=== PATIENT | female | born 1985 | race Caucasian/White ===

== ENCOUNTER 2017-08-02 05:02 | Inpatient (IN) | payer BC ==
[~2017-08-02] VITALS: Ht 152.4 cm; Wt 86.2 kg
[~2017-08-02 05:02] MED LIST: ACET-3017 PO; HYDR2TAB4 PO; IBUP800T37 PO; METH0.2T6 PO; PNV1TABL70 PO
[2017-08-02] MEDS ORDERED: FAMOTIDINE(*) 20MG/50ML PREMIX 50 ML IVPB PRN (05:06)
[2017-08-02] MEDS ORDERED: OXYTOCIN 30 UNIT/D5LR 500 ML 500 ML IV PRN ×2 (05:06)
[2017-08-02] MEDS ORDERED: LIDOCAINE/SOD BICARB 8.4% SYR SC PRN (05:10)
[2017-08-02] MEDS ORDERED: fentaNYL CITR 100 MCG/2 ML AMP IVP PRN (05:10)
[2017-08-02] MEDS ORDERED: METOCLOPRAMIDE 10 MG/2 ML SDV IVP PRN (05:10)
[2017-08-02] MEDS ORDERED: MISOPROSTOL 25 MCG CAP PV PRN (05:10)
[2017-08-02] MEDS ORDERED: LIDOCAINE 1% LOCAL 300 MG/30ML INJ PRN (05:10)
[2017-08-02] MEDS ORDERED: cefOXitin SOD 2 GM VIAL 2 GM in NS(*) 0.9% 100 ML BAG 100 ML IVPB PRN (05:10)
[2017-08-02] MEDS ORDERED: TERBUTALINE SULF 1 MG/ML VIAL SUBQ PRN (05:10)
[2017-08-02] MEDS: LR(*) 1000 ML BAG 1,000 ML IV PRN ×3 (05:52→12:22)
[2017-08-02 06:09] LABS: PLATELET COUNT, AUTOMATED 231 K/uL (150-450)
[2017-08-02 06:12] VITALS: BP 126/79; Ht 152.4 cm; Wt 86.2 kg
--- NOTE | 2017-08-02 07:28 | History & Physical ---
History of Present Illness Age of Patient: 31 : 3 Para or TPAL: 1011 EDC per LMP: Aug 06, 2017 Estimated Gestational Age: 39.3 Chief Complaint IOL History of Present Illness The patient is a 31 year old 3 para 1011 admitted at 39 3/7 weeks estimated gestational age with an estimated date of delivery 08/06/17 . Patient is admitted for induction of labor. No vaginal bleeding. Good movement and occasional contractions. She was evaluated for active labor. She had an uncomplicated course. Her record was reviewed. History Allergies: Coded Allergies: No Known Drug Allergies (Unverified , 05/11/13) Med Rec Home Meds Active Scripts Methylergonovine Mal 0.2 Mg Tab (METHERGINE 0.2 MG TAB) 0.2 Mg Tablet, 0.2 MG PO Q6H, #6 TAB Prov:REESE SAAB MD 09/02/16 Ibuprofen (IBUPROFEN) 800 Mg Tablet, 1 TAB PO Q8H, #30 TAB 0 Refills Take with food every 8 hours. Prov:REESE SAAB MD 09/02/16 Hydromorphone Hcl (HYDROMORPHONE HCL) 2 Mg Tablet, 2-4 MG PO Q4H for PAIN, #20 TAB 0 Refills Prov:REESE SAAB MD 09/02/16 Reported Medications Pnv Cmb#95/Ferrous Fumarate/Fa ( MULTIVITAMINS TABLET) 1 Each Tablet, 1 EACH PO 05/11/13 Exam General Exam Vital Signs Vital Signs Date Time Temp Pulse Resp B/P (MAP) Pulse Ox O2 Delivery O2 Flow Rate FiO2 08/02/17 06:12 98.8 110 16 126/79 (95) Room Air Cardiovascular: Regular Rate and Rhythm Respiratory: Clear to Auscultation Abdomen: Gravid - Non-Tender Extremities: No Edema Cervical Dialation: 4 (rn) Uterine Contractions(Q min): 3 Fetus Heart Tones: 130 Heart Tone Variabilty: Moderate FHT Category: I Medical Decision Making Data Points Result Diagram: 08/02/17 0553 Assessment and Plan Problems: (1) , normal subsequent Assessment & Plan: IOL AT TERM FAVORABLE CERVIX WILL MONITOR FOR CHANGE. LAST SMALLER THAN THIS WILL MONITOR FOR CHANGE IN CERVIX Copies to: REESE SAAB MD, JOHN MD Aug 02, 2017 07:27
--- NOTE | 2017-08-02 09:07 | Labor Progress Note ---
Labor Subjective Progress Notes Subjective FEELING CONTRACTIONS Vaginal Discharge/Fluid: Clear Fluid Labor Pain: Mild Labor Objective Vital Signs Vital Signs Date Time Temp Pulse Resp B/P (MAP) Pulse Ox O2 Delivery O2 Flow Rate FiO2 08/02/17 06:12 98.8 110 16 126/79 (95) Room Air Cervical Dialation: 5 Cervical Effacement (%): 90 Cervical Consistency: Soft Cervical Position: Anterior Station: -1 Presentation: Vertex Uterine Contractions(Q min): 3 Uterine Contraction Strength: Moderate Fetus Heart Tones: 150 Heart Tone Variabilty: Moderate FHT Accelerations: 15X15 FHT Category: I Other Result Diagram: 08/02/17 0553 Assessment and Plan Problems: (1) , normal subsequent Assessment & Plan: WITH EXAM FOREBAG ROM WITH AMNIOTIC MEMBRANE PALPATED WITH BULGING BAG, NOT RUPTURED WILL ALLOW TO LABOR REESE SAAB MD Aug 02, 2017 09:07
[2017-08-02] MEDS ORDERED: LIDO/EPI 2% MPF 1:200,000 20ML EPI PRN (09:30)
[2017-08-02] MEDS ORDERED: ePHEDrine 25 MG/5 ML DISP.SYR IVP PRN (09:30)
[2017-08-02] MEDS ORDERED: EPIDURAL KEYS XX PRN (09:30)
[2017-08-02] MEDS ORDERED: FENTANYL/ROPIVACAINE 100 ML BAG EPI PRN (09:30)
[2017-08-02] MEDS ORDERED: BUPIVACAINE 0.5% INJ 30ML VIAL EPI PRN (09:30)
[2017-08-02] MEDS ORDERED: LIDOCAINE/PF 2% 200MG/10ML AMP 200 MG/10 ML AMPUL EPI PRN (09:30)
[2017-08-02] MEDS ORDERED: BUPIVACAINE 0.25% MPF INJ EPI PRN (09:30)
[2017-08-02] MEDS ORDERED: fentaNYL CITR 100 MCG/2 ML AMP IT PRN (09:30)
--- NOTE | 2017-08-02 12:59 | Anesthesia OB Pre-Anes Eval ---
History of Present Illness Anesthesia Start Date: Aug 02, 2017 Anesthesia Start Time: 09:57 OB Anesthesia Diagnosis: induction - medical EDC: Aug 06, 2017 : 3 Para: 1 Vital Signs: Vital Signs 08/02/17 06:12 Temp 98.8 Pulse 110 Resp 16 B/P (MAP) 126/79 (95) O2 Delivery Room Air Pain Ratin Result Diagram: 08/02/17 0553 Height (Inches): 60.00 Weight (Pounds): 190 BMI Calculated: 37.10 Past Medical History Medical History: no pertinent history Previous Anesthesia: epidural Attended Childbirth Classes?: No Hx Anesthesia Reactions: No Hx Family Anesthesia Reaction: No Current Medications: pitocin Home Meds Active Scripts Methylergonovine Mal 0.2 Mg Tab (METHERGINE 0.2 MG TAB) 0.2 Mg Tablet, 0.2 MG PO Q6H, #6 TAB Prov:REESE SAAB MD 09/02/16 Ibuprofen (IBUPROFEN) 800 Mg Tablet, 1 TAB PO Q8H, #30 TAB 0 Refills Take with food every 8 hours. Prov:REESE SAAB MD 09/02/16 Hydromorphone Hcl (HYDROMORPHONE HCL) 2 Mg Tablet, 2-4 MG PO Q4H for PAIN, #20 TAB 0 Refills Prov:REESE SAAB MD 09/02/16 Reported Medications Pnv Cmb#95/Ferrous Fumarate/Fa ( MULTIVITAMINS TABLET) 1 Each Tablet, 1 EACH PO 05/11/13 Allergies: Coded Allergies: No Known Drug Allergies (Unverified , 05/11/13) Anesthesia OB ROS Neurological: No migraines/headaches, No seizures, No neuropathy, No other ENT: Denies Tooth caps, Denies Loose teeth, Denies Chipped teeth, Denies Dentures, Denies Bridges, Denies Retainers, Denies Veneers, Denies Implants, Denies Tongue ring, Denies Other Pulmonary: No asthma, No smoker (pks/day/yrs), No other Airway Class: lll Cardiovascular ROS: No edema, No arrhythmia, No other GI ROS: clear liquids Last Solids Date: Aug 01, 2017 Last Solids Time: 18:30 ROS: No Herpes, No STD(s), No Liver Disease, No Renal Disease, No Other Endocrine ROS: No diabetes, No gestational diabetes, No thyroid disorder, No other Musculoskeletal ROS: No low back pain, No low back injury, No scoliosis, No other ASA Classification: 2 Assessment and Plan Anesthesia Plan: JASEN BOWSER CRNA Aug 02, 2017 12:59
--- NOTE | 2017-08-02 13:03 | Procedure Note ---
Anesthetic Placement Note Anesthesia Plan: CSE Permit for Anesthesia Signed: Yes Anesthesia Technique: Patient Sitting Anesthesia Prep: Chlorhexidine Interspace: L 3-4 Local Anesthetic: 1% Lidocaine Amount Local - cc's: 5 Anesthesia Needle: 17g Touhy/Schliff Anesthesia Attempts: 2 Loss of Resistance: Normal Saline Depth of ABBIE (cm): 5.5 Epidural Needle Placement: No CSF, No Blood, No Parasthesia Intrathecal Needle: 27 Gauge Pencan Cerebral Spinal Fluid: Yes, Clear Catheter Insertion (cm): 10 (at skin) Catheter Type: Bain - Spring Wound Epidural Dressing: Tegaderm, Tape Anesthesia Tray: Lot Number ([id number]), Expiration Date (12/02), Reference Number ([id number]) Anesthesia Medications: Intrathecal Dose: mcg Fentanyl (10), mg Marcaine MPF (2.5) Epidural Test Dose: 1.5 Lido/Epi (1:200,000), Dose - mL (3), Time (1017), Negative Comment: Pt has pressure and a rim of cervix. Did not hok up epidual infusion. Will habd bolus as needed. JASEN NICOLE CRNA Aug 02, 2017 13:03
--- NOTE | 2017-08-02 13:04 | Anesthesia Progress Note ---
Progress/Maintenance Anesthesia Note Date: Aug 02, 2017 Anesthesia Note Time: 11:50 Pain Intensity: 2 Pump: Off Sensory Level: rectal pressure Motor Level: Bending Knees-Bilateral Dilatation: 10 Position: Right Drug Bolus: 0.25% Marcaine (5cc + 50 mcg fentanyl) JASEN NICOLE CRNA Aug 02, 2017 13:04
--- NOTE | 2017-08-02 13:05 | Anesthesia Progress Note ---
Progress/Maintenance Anesthesia Note Date: Aug 02, 2017 Anesthesia Note Time: 12:40 Pain Intensity: 1 Sensory Level: pressure. +2 station Motor Level: Bending Knees-Bilateral Dilatation: 10 Position: Left Drug Bolus: 0.25% Marcaine (5cc) JASEN NICOLE CRNA Aug 02, 2017 13:05
--- NOTE | 2017-08-02 13:15 | Labor Progress Note ---
Labor Subjective Progress Notes Subjective feeling pressure Labor Objective Vital Signs Vital Signs Date Time Temp Pulse Resp B/P (MAP) Pulse Ox O2 Delivery O2 Flow Rate FiO2 08/02/17 06:12 98.8 110 16 126/79 (95) Room Air Cervical Dialation: 10 Station: +1 Presentation: Vertex Uterine Contractions(Q min): 3 Uterine Contraction Strength: Strong Fetus Heart Tones: 130 Heart Tone Variabilty: Moderate FHT Accelerations: 15X15 FHT Decelerations: Variable FHT Category: II Other Result Diagram: 08/02/17 0553 Assessment and Plan Problems: (1) , normal subsequent Assessment & Plan: will see if able to tolerate laboring down REESE SAAB MD Aug 02, 2017 13:15
--- NOTE | 2017-08-02 13:47 | Anesthesia Progress Note ---
Progress/Maintenance Anesthesia Note Date: Aug 02, 2017 Anesthesia Note Time: 13:45 Pain Intensity: 3 Sensory Level: pressure Motor Level: Bending Knees-Bilateral Dilatation: 10 Position: Left Drug Bolus: 0.25% Marcaine (5cc + 40 mcg Fentanyl) JASEN NICOLE CRNA Aug 02, 2017 13:47
--- NOTE | 2017-08-02 15:08 | OB Delivery Note ---
Delivery Note Vaginal Delivery Type: Spont. Vaginal Delivery Delivery Date: Aug 02, 2017 Delivery Time: 14:30 Estimated Gestational Age(wks): 39.3 Delivery Anesthesia: Epidural, Local Sex: Female Weight (gms): 3544 Apgars: 1 Minute (7), 5 Minute (8) Repair Needed: Laceration, Vaginal, Perineal, 2nd Degree Estimated Blood Loss: 400 Delivery Complications: Nuchal Cord Notes: IOL, PITOCIN, AROM RECEIVED EPIDURAL, PROGRESSED TO COMPLETE. PUSHED EFFECTIVELY DELIVERED OVER MIDLINE LACERATION WHICH WAS REPAIRED WITH 3-0 VICRYL Material Requirements Worker in Attendence: No Copies to: REESE SAAB MD, JOHN MD Aug 02, 2017 15:07
[2017-08-02] MEDS ORDERED: GLYCERIN/WITCH HAZEL LEAF 1 PK TP PRN (15:10)
[2017-08-02] MEDS ORDERED: HYDROmorphone HCL 2 MG TAB PO PRN (15:10)
[2017-08-02] MEDS ORDERED: LANOLIN OINT 7 GM TUBE TP PRN (15:10)
[2017-08-02] MEDS ORDERED: BENZOCAINE 20% 60 ML BTL TP PRN (15:10)
[2017-08-02] MEDS ORDERED: ACETAMINOPHEN 325 MG TAB PO PRN (15:10)
[2017-08-02] MEDS ORDERED: MEASLES,MUMP,RUBELLA VAC 0.5ML SUBQ ONE (15:10)
[2017-08-02] MEDS ORDERED: INFLUENZA VIRUS VAC 0.5 ML SYR IM ONLY ONE (15:10)
[2017-08-02] MEDS ORDERED: DIPHTH/TETANUS/ACEL. PERTUSSIS IM ONLY ONE (15:10)
[2017-08-02] MEDS ORDERED: HYDROCORTISONE 2.5% CR 30GM TB PR PRN (15:10)
[2017-08-02] MEDS ORDERED: MAGNESIUM HYDROXIDE* 30ML UDCP PO PRN (15:10)
--- NOTE | 2017-08-02 15:19 | Anesthesia Progress Note ---
Assessment and Plan Anesthesia Plan: CSE Anesthesia Stop Day: Aug 02, 2017 Anesthesia Stop Time: 15:00 Epidural Catheter Removal: Yes, Removed by: (Sindy CHEW) JASEN NICOLE CRNA Aug 02, 2017 15:19
[2017-08-02] MEDS ORDERED: LIDOCAINE 1% LOCAL 300 MG/30ML 30 ML ONE (16:21)
[2017-08-02 17:45] VITALS: BP 116/64
[2017-08-02] MEDS: IBUPROFEN 800 MG TAB PO SCH (17:51)
[2017-08-02 20:02] VITALS: BP 119/68
[2017-08-02] MEDS: DOCUSATE CALCIUM 240 MG CAP PO SCH (21:16)
[2017-08-02] MEDS: MISOPROSTOL 200 MCG TAB PO SCH (21:17)
[2017-08-02 23:52] VITALS: BP 120/60
[2017-08-03] MEDS: IBUPROFEN 800 MG TAB PO SCH ×2 (01:00→09:50)
[2017-08-03] MEDS: MISOPROSTOL 200 MCG TAB PO SCH ×2 (03:07→09:55)
[2017-08-03 04:45] VITALS: BP 116/72
[2017-08-03] MEDS ORDERED: HYDR2TAB4 PO (08:58)
[2017-08-03] MEDS ORDERED: IBUP800T37 PO (08:58)
[2017-08-03] MEDS ORDERED: MULTIVITAMINS (PRENATAL) TAB PO SCH (09:00)
--- NOTE | 2017-08-03 09:01 | OB/GYN Discharge Summary ---
Discharge Summary Reason for Hosp/Final Diag: (1) , normal subsequent (2) care following vaginal delivery Hospital Course & Plan: Vag delivery on day 1, Pain controlled, Tolerating diet and activity. Baby . Normal lochia. Lates Vital Signs Vital Signs Date Time Temp Pulse Resp B/P (MAP) Pulse Ox O2 Delivery O2 Flow Rate FiO2 08/03/17 04:45 98.7 92 16 116/72 (87) 08/02/17 20:02 95 Room Air Weight (Pounds): 190 Result Diagram: 08/03/17 0630 Condition: Improved Discharge: Home, Self Retirement Meds Active Scripts Ibuprofen (IBUPROFEN) 800 Mg Tablet, 1 TAB PO Q8H, #30 TAB 0 Refills Take with food every 8 hours. Prov:REESE ABDI MD 08/03/17 Hydromorphone Hcl (HYDROMORPHONE HCL) 2 Mg Tablet, 2-4 MG PO Q4H for PAIN, #20 TAB 0 Refills Prov:REESE ABDI MD 08/03/17 Methylergonovine Mal 0.2 Mg Tab (METHERGINE 0.2 MG TAB) 0.2 Mg Tablet, 0.2 MG PO Q6H, #6 TAB Prov:REESE ABDI MD 09/02/16 Ibuprofen (IBUPROFEN) 800 Mg Tablet, 1 TAB PO Q8H, #30 TAB 0 Refills Take with food every 8 hours. Prov:REESE ABDI MD 09/02/16 Hydromorphone Hcl (HYDROMORPHONE HCL) 2 Mg Tablet, 2-4 MG PO Q4H for PAIN, #20 TAB 0 Refills Prov:REESE ABDI MD 09/02/16 Reported Medications Pnv Cmb#95/Ferrous Fumarate/Fa ( MULTIVITAMINS TABLET) 1 Each Tablet, 1 EACH PO 05/11/13 [phone], Dr. Abdi [phone] Follow up in: 6 wks PP or PO Discharge Diet: As Tolerates Discharge Activity: Pelvic Rest Copies to: REESE ABDI MD, JOHN MD Aug 03, 2017 09:00
--- NOTE | 2017-08-03 09:02 | OB/GYN Progress Note ---
OB Subjective Progress Notes Subjective Pain controlled, Tolerating diet and activity. Baby . Normal lochia. GI: POS Flatus, NEG Nausea, NEG Vomiting : Voiding Well Pain: Mild OB Objective Physical Exam Vital Signs Date Time Temp Pulse Resp B/P (MAP) Pulse Ox O2 Delivery O2 Flow Rate FiO2 08/03/17 04:45 98.7 92 16 116/72 (87) 08/02/17 20:02 95 Room Air Cardiovascular: Regular Rate and Rhythm Respiratory: Clear to Auscultation Abdomen: Fundus Firm Extremities: No Edema Result Diagram: 08/03/17 0630 Assessment and Plan Problems: (1) , normal subsequent (2) care following vaginal delivery Assessment & Plan: Vag delivery on day 1, Pain controlled, Tolerating diet and activity. Baby . Normal lochia. REESE SAAB MD Aug 03, 2017 09:01
[2017-08-03] MEDS: DOCUSATE CALCIUM 240 MG CAP PO SCH (09:50)
[2017-08-03 09:55] VITALS: BP 114/63
--- NOTE | 2017-08-03 11:53 | Anesthesia Post Eval Note ---
Anesthesia Post Eval Note Vital Signs 08/03/17 09:55 Temp 98.5 Pulse 101 Resp 20 B/P (MAP) 114/63 (80) Pulse Ox 96 O2 Delivery Room Air Pt able to participate in Eval: Yes Cardiovascular Status: Satisfactory Respiratory Status: Satisfactory Pain Managment: Satisfactory PO Nausea/Vomiting: Satisfactory Temperature Management: Satisfactory Mental Status: Satisfactory, Alert, Oriented X3 Post-Op Hydration Status: Satisfactory, Tolerating PO Well, Voiding w/o Difficulty Anesthesia Type: CSE JASEN NICOLE CRNA Aug 03, 2017 11:53
[2017-08-03 13:00] VITALS: BP 107/60
[2017-08-03] MEDS ORDERED: MISOPROSTOL 200 MCG TAB PO SCH (21:00)
== END 2017-08-03 16:00 | disposition home or self-care (01) | DRG 775 ==
LOC: OB 05:02
PROVIDERS: ADMIT Obstetrics & Gynecology; ATTEND Obstetrics & Gynecology
PROC: 10E0XZZ Delivery of Products of Conception, External Approach (ICD-10-PCS; principal; 2017-08-02)
PROC: 0KQM0ZZ Repair Perineum Muscle, Open Approach (ICD-10-PCS; 2017-08-02)
PROC: 10907ZC Drainage of Amniotic Fluid, Therapeutic from Products of Conception, Via Natural or Artificial Opening (ICD-10-PCS; 2017-08-02)
PROC: 3E033VJ Introduction of Other Hormone into Peripheral Vein, Percutaneous Approach (ICD-10-PCS; 2017-08-02)
DX: O69.81X0 Labor and delivery complicated by cord around neck, without compression, not applicable or unspecified (principal); O70.1 Second degree perineal laceration during delivery; Z3A.39 39 weeks gestation of pregnancy; Z37.0 Single live birth
CPT/HCPCS: 36415; 85025; 85027; 86850; 86900; 86901; J2001; J2590; J3010; J7120; S0020

== ENCOUNTER 2017-09-22 03:15 | Day surgery (SDC) | payer BC ==
[2017-08-02 06:12] VITALS: Ht 152.4 cm; Wt 68.5 kg
[2017-09-22] VITALS (8 sets, daily range): BP systolic 102–118; BP diastolic 66–84
[~2017-09-22] VITALS: Ht 152.4 cm; Wt 68.5 kg
[~2017-09-22 03:15] MED LIST changes: +PREN-127 PO
[2017-09-22 07:13] LABS: PLATELET COUNT, AUTOMATED 398 K/uL (150-450)
[2017-09-22] MEDS ORDERED: ceFAZolin(*) 1 GM VIAL 1 GM in NS(*) 0.9% 100 ML ADDVANT BAG 100 ML IVPB ONE (07:40)
[2017-09-22] MEDS ORDERED: NORMOSOL R SOLN(*) 1000 ML BAG 1,000 ML IV PRN (07:40)
[2017-09-22] MEDS ORDERED: FAMOTIDINE 20 MG TAB PO ONE (07:40)
[2017-09-22] MEDS ORDERED: LIDOCAINE/SOD BICARB 8.4% SYR ID ONE (07:40)
[2017-09-22] MEDS ORDERED: MIDAZOLAM 2 MG/2 ML VIAL IVP PRN (07:40)
[2017-09-22] MEDS ORDERED: ROPIVACAINE 0.2% 20 ML VIAL ONE (08:01)
[2017-09-22] MEDS ORDERED: ONDANSETRON 4 MG/2 ML VIAL ONE (08:29)
[2017-09-22] MEDS ORDERED: DEXAMETHASONE SOD PHOS 10MG/ML ONE (08:29)
[2017-09-22] MEDS ORDERED: PROPOFOL EMUL(*) 10MG/ML 20 ML 20 ML ONE (08:29)
[2017-09-22] MEDS ORDERED: fentaNYL CITR 100 MCG/2 ML AMP ONE ×2 (08:30→09:34)
[2017-09-22] MEDS ORDERED: ROCURONIUM BROM 10 MG/ML 10 ML ONE (08:33)
[2017-09-22] MEDS ORDERED: SUGAMMADEX SOD 500 MG/5 ML SDV ONE (09:07)
[2017-09-22] MEDS ORDERED: LR(*) 1000 ML BAG 1,000 ML IV ONE (09:27)
[2017-09-22] MEDS ORDERED: ONDANSETRON 4 MG/2 ML VIAL IVP PRN (09:30)
[2017-09-22] MEDS ORDERED: METOCLOPRAMIDE 10 MG/2 ML SDV IVP PRN (09:30)
--- NOTE | 2017-09-22 09:36 | Post Operative Note ---
Operative Note - [employer] Operative Day Date: Sep 22, 2017 Time: 09:29 Physicians Surgeon: Nael Tidwell Do Anesthesia: GET 20 cc of Local rupivicaine Diagnosis Pre-Op Diagnosis: 32 y/o Desires sterility (contraception) Post-Op Diagnosis: same Procedure Findings: Uterus 8 week size. Normal tubes and ovaries bilaterally. Liver smooth. Procedure(s): Laparoscopic BTL Falope rings Specimen Removed:(Maybe N/A): 0 Complications: 0 known Fluids Fluids: 800 cc u/o 120 cc Estimated Blood Loss: 10 Dictated Date OP Note Dictated: Sep 22, 2017 NAEL TIDWELL DO Sep 22, 2017 09:36
[2017-09-22] MEDS ORDERED: PROMETHAZINE 25 MG/ML 1 ML AMP ONE (09:44)
[2017-09-22] MEDS ORDERED: IBUP800T37 PO (10:01)
[2017-09-22] MEDS ORDERED: HYDR-4309 PO (10:01)
--- NOTE | 2017-09-22 10:07 | OB/GYN Discharge Summary ---
Discharge Summary Reason for Hosp/Final Diag: (1) Unwanted fertility Hospital Course & Plan: Presented for a tubal ligation. Underwent procedures with out any difficulty. See operative note for details. Pt discharged home from Recovery. Lates Vital Signs Vital Signs Date Time Temp Pulse Resp B/P (MAP) Pulse Ox O2 Delivery O2 Flow Rate FiO2 09/22/17 10:00 93 20 95 09/22/17 07:10 98.2 118/75 (89) Room Air Weight (Pounds): 151 Result Diagram: 09/22/17705 Condition: Improved Discharge: Home Home Meds Active Scripts Hydrocodone Bit/Acetaminophen (NORCO 5-325 TABLET) 1 Each Tablet, 1 EACH PO Q6H Y for PAIN, #12 TAB 0 Refills Prov:NAEL SUN DO 09/22/17 Reported Medications Vits W-Ca,Fe,Fa(<1MG) ( VITAMINS) 1 Each Tablet, 1 EACH PO DAILY, TAB 09/17/17 Discontinued Scripts Ibuprofen (IBUPROFEN) 800 Mg Tablet, 1 TAB PO Q8H, #30 TAB 0 Refills Take with food every 8 hours. Prov:REESE SAAB MD 08/03/17 Hydromorphone Hcl (HYDROMORPHONE HCL) 2 Mg Tablet, 2-4 MG PO Q4H for PAIN, #20 TAB 0 Refills Prov:REESE SAAB MD 08/03/17 Follow up with: [facility] [place] [phone], Dr. Sun [phone] Follow up in: 2 wks PO Discharge Diet: As Tolerates, Resume Prior Admit Diet Discharge Activity: As Tolerates, Pelvic Rest NAEL SUN DO Sep 22, 2017 10:07
[2017-09-22] MEDS ORDERED: IBUPROFEN 800 MG TAB PO ONE (11:25)
--- NOTE | 2017-09-22 12:36 | OPERATIVE REPORT 1 ---
EVENT DATE: September 22, 2017 SURGEON: Adolfo Tidwell D.O. ANESTHESIA: General endotracheal intubation with 20 mL of ropivacaine 2%. PREOPERATIVE DIAGNOSIS 1. 32-year-old G3, P2. 2. Desires permanent sterility/contraception. POSTOPERATIVE DIAGNOSIS 1. 32-year-old G3, P2. 2. Desires permanent sterility/contraception. PROCEDURE PERFORMED Bilateral laparoscopic tubal ligation with Falope rings. FINDINGS Uterus eight weeks' size. Normal tubes and ovaries bilaterally. Liver smooth. Bilateral blanching of fallopian tubes post procedure. ESTIMATED BLOOD LOSS 10 mL. PATHOLOGY None. IV FLUIDS 800 mL. URINE OUTPUT 120 mL. COMPLICATIONS None known. CONDITION Stable x1 to recovery. COUNTS Correct for all needles, lap sponges and instruments. INDICATIONS Patient is a 32-year-old 3, para 2 who presented to the clinic for contraception consult who desired permanent sterility. The patient was counseled on the risks, benefits and alternatives including vasectomy, long- term contraception such as Mirena or ParaGard IUD. The patient desires to proceed with permanent sterility with the understanding that it is permanent and there is no taking it back. The patient signed the appropriate consents and desires to proceed with tubal ligation. DESCRIPTION OF PROCEDURE The patient was taken to the Operating Room, where she was placed in the dorsal supine position. She then underwent general endotracheal intubation. When intubation was achieved, the patient was then placed in the dorsal lithotomy position, prepped and draped in the usual sterile manner. Sterile speculum was placed in the vagina. The cervix was grasped with Allis clamp and sounded to 6. A ELIZA manipulator was placed in the cervix to help with manipulation. Once the ELIZA was in place, the speculum was removed. Surgeon's gloves were changed and attention turned to the abdomen. The umbilical area was anesthetized with 10 mL of local. #11 blade scalpel was then used to create a 5 mm incision. Veress needle was then used to achieve pneumoperitoneum. With pneumoperitoneum achieved, a 5 mm trocar was then placed with the Optiport during laparoscopic visualization. With visualization , the area was noted to be without injury. The patient was then placed in the lithotomy position and Trendelenburg. The right and left fallopian tubes were easily visualized. Pictures were taken. With the Falope ring applicator, the right fallopian tube was grasped in the mid isthmal region. The Falope ring was applied. Immediate blanching was noted. The same procedure was performed on the left fallopian tube with the left fallopian tube grasped with ring applicator and the device was deployed with immediate blanching of the left fallopian tube in the mid isthmal region. With this complete, pictures were taken. The 8 mm trocar was removed under laparoscopic visualization and noted to be hemostatic. The pneumoperitoneum was released. The 8 mm trocar was removed. The incisions were then closed with 4-0 Monocryl in an interrupted manner. Dermabond was placed over the incisions. The patient was then transferred to the recovery room in stable condition. CLAUDIA
[2017-09-22] MEDS ORDERED: IBUPROFEN 800 MG TAB PO SCH (17:00)
== END 2017-09-22 10:07 | disposition home or self-care (01) ==
LOC: OR 03:15
PROVIDERS: ATTEND Student in an Organized Health Care Education/Training Program
DX: Z30.2 Encounter for sterilization (principal)
CPT/HCPCS: 36415; 58671; 84703; 85025; J0690; J1100; J2405; J2550; J2704; J2795; J3010; J7050